=== PATIENT | female | born 1995 | race Caucasian/White ===

== ENCOUNTER → 2017-02-11 | Outpatient (REF) | LOC: WSOH 08:40 | DX: Z00.00 Encounter for general adult medical examination without abnormal findings (principal) ==

== ENCOUNTER → 2018-08-02 | Outpatient (CLI) | payer BC ==
[~2018-08-02] VITALS: Ht 165.1 cm; Wt 91.9 kg
[~2018-08-02] MED LIST: ALDACTONE 100M100 MG PO; GLUCOPHAGE XR500 M1 PO; SYEDA 3 MG-0.031 TAB PO
[2018-08-02 09:14] VITALS: BP 118/80; PULSE 68
== END ==
LOC: LIGHT 08:39
DX: E28.2 Polycystic ovarian syndrome (principal); J45.909 Unspecified asthma, uncomplicated; M15.9 Polyosteoarthritis, unspecified; E66.9 Obesity, unspecified; Z71.3 Dietary counseling and surveillance; Z68.33 Body mass index [BMI] 33.0-33.9, adult
CPT/HCPCS: G0463

== ENCOUNTER → 2018-08-15 | Outpatient (CLI) | payer BC | LOC: LIGHT 14:53 | DX: E28.2 Polycystic ovarian syndrome (principal); J45.909 Unspecified asthma, uncomplicated; M15.9 Polyosteoarthritis, unspecified; E66.9 Obesity, unspecified; Z68.33 Body mass index [BMI] 33.0-33.9, adult; Z71.3 Dietary counseling and surveillance ==

== ENCOUNTER → 2018-08-22 | Outpatient (CLI) | payer BC | LOC: LIGHT 13:58 | DX: E28.2 Polycystic ovarian syndrome (principal); J45.909 Unspecified asthma, uncomplicated; M16.9 Osteoarthritis of hip, unspecified; E66.9 Obesity, unspecified; Z68.33 Body mass index [BMI] 33.0-33.9, adult; Z71.3 Dietary counseling and surveillance ==

== ENCOUNTER → 2018-08-30 | Outpatient (CLI) | payer BC ==
[~2018-08-30] VITALS: Ht 165.1 cm; Wt 90.5 kg
[2018-08-30 16:09] VITALS: BP 102/70; PULSE 80
== END ==
LOC: LIGHT 09:40
DX: E28.2 Polycystic ovarian syndrome (principal); J45.909 Unspecified asthma, uncomplicated; M15.9 Polyosteoarthritis, unspecified; E66.9 Obesity, unspecified; Z68.33 Body mass index [BMI] 33.0-33.9, adult; Z71.3 Dietary counseling and surveillance
CPT/HCPCS: G0463

== ENCOUNTER → 2018-09-27 | Outpatient (CLI) | payer BC ==
[~2018-09-27] VITALS: Ht 165.1 cm; Wt 90.7 kg
[~2018-09-27] MED LIST changes: +PHENTERMINE15 MG PO
[2018-09-27 15:43] VITALS: BP 134/80; PULSE 76
== END ==
LOC: LIGHT 15:33
DX: E28.2 Polycystic ovarian syndrome (principal); J45.909 Unspecified asthma, uncomplicated; M15.9 Polyosteoarthritis, unspecified; E66.9 Obesity, unspecified; Z68.33 Body mass index [BMI] 33.0-33.9, adult; Z71.3 Dietary counseling and surveillance
CPT/HCPCS: G0463